=== PATIENT | female | born 1975 | race Caucasian/White ===

== ENCOUNTER 2016-06-21 18:03 | Emergency (ER) | payer OTHER ==
[~2016-06-21] VITALS: Ht 154.9 cm; Wt 52.0 kg
[~2016-06-21 18:03] MED LIST: AMOXICILLIN500 M1 PO; BACTRIM,SEPT1 TABLET PO; EFFEXOR XR150 MG PO; EFFEXOR XR75 MG PO; METHADONE10 MG PO; MUPIROCIN22 GM TP; PAXIL20 MG PO; PEN-VEE K,VEET500 MG PO; QUETIAPINE FUM100 MG PO; ULTRAM50 MG PO; ZOFRAN4 MG PO
[2016-06-21 19:03] LABS: ADD MIUA? YES; BILIRUBIN NEGATIVE; BLOOD SMALL; COLOR YELLOW ((YELLOW)); GLUCOSE (STRIP) NEGATIVE; KETONES 5; LEUKOCYTES MODERATE; NITRITE POSITIVE; PROTEIN (STRIP) NEGATIVE; SPECIFIC GRAVITY 1.028 (1.000-1.030); UROBILINOGEN 0.2 MG/DL (0.2-1.0)
[2016-06-21 19:23] LABS: BACTERIA 1+ /HPF; EPITHELIAL CELLS 3+ /HPF; MUCUS TRACE /LPF; RED BLOOD CELLS 0-5 /HPF (0-5); UCUL ADDED? NO
[2016-06-21] MEDS ORDERED: PYRIDIUM100 MG PO (20:32)
[2016-06-21] MEDS ORDERED: CIPRO500 MG PO (20:32)
[2016-06-21] MEDS ORDERED: ZOFRAN ODT4 MG PO (20:32)
[2016-06-21 20:44] VITALS: BP 117/71
== END 2016-06-21 20:46 | disposition home or self-care (01) ==
LOC: EME 18:03 → RME 18:03
DX: N39.0 Urinary tract infection, site not specified (principal); Z87.440 Personal history of urinary (tract) infections; F17.200 Nicotine dependence, unspecified, uncomplicated
CPT/HCPCS: 81003; 99281; 99284

== ENCOUNTER 2016-12-21 09:56 | Emergency (ER) | payer OTHER ==
[~2016-12-21] VITALS: Ht 154.9 cm; Wt 51.2 kg
[~2016-12-21 09:56] MED LIST changes: +CIPRO500 MG PO; +PYRIDIUM100 MG PO; +ZOFRAN ODT4 MG PO
[2016-12-21] MEDS ORDERED: VIBRAMYCIN100 MG PO (11:18)
[2016-12-21 11:33] VITALS: BP 115/90
== END 2016-12-21 11:34 | disposition home or self-care (01) ==
LOC: EME 09:56
DX: L01.00 Impetigo, unspecified (principal); Z86.14 Personal history of Methicillin resistant Staphylococcus aureus infection; F17.200 Nicotine dependence, unspecified, uncomplicated
CPT/HCPCS: 99281; 99284

== ENCOUNTER 2017-01-11 19:23 | Emergency (ER) | payer OTHER ==
[~2017-01-11] VITALS: Ht 154.9 cm; Wt 51.4 kg
[~2017-01-11 19:23] MED LIST changes: +VIBRAMYCIN100 MG PO
[2017-01-11 19:26] VITALS: BP 140/77
[2017-01-11] MEDS ORDERED: PEN-VEE K,VEET500 MG PO (20:46)
[2017-01-11] MEDS ORDERED: NAPROXEN500 MG PO (20:46)
[2017-01-11] MEDS ORDERED: NORCO 5/3251 TABLET PO (20:46)
== END 2017-01-11 20:55 | disposition home or self-care (01) ==
LOC: EME 19:23 → EXP 19:23
DX: K08.89 Other specified disorders of teeth and supporting structures (principal); K02.9 Dental caries, unspecified; R11.0 Nausea; Z86.14 Personal history of Methicillin resistant Staphylococcus aureus infection; F17.200 Nicotine dependence, unspecified, uncomplicated
CPT/HCPCS: 99281; 99283